=== PATIENT | male | born 1990 | race Caucasian/White ===

== ENCOUNTER 2019-05-26 17:15 | Emergency (ER) | payer SELFPAY ==
[~2019-05-26] VITALS: Ht 182.9 cm; Wt 114.9 kg
[2019-05-26 17:17] VITALS: BP 132/75
[2019-05-26] MEDS ORDERED: DIAZEPAM 5 MG TABLET ONE (17:52)
[2019-05-26] MEDS ORDERED: KETOROLAC 30 MG/1 ML ONE (17:52)
[2019-05-26] MEDS ORDERED: DIAZEPAM 5 MG TABLET PO ONE (18:00)
[2019-05-26] MEDS ORDERED: KETOROLAC 30 MG/1 ML IM ONE (18:00)
--- NOTE | 2019-05-26 18:37 | NUR ---
DC EDUCATION PROVIDED, PT DEMONSTRATES UNDERSTANDING. PT AMBULATED STEADILY TO DC WITH RN. SO TO TRANSPORT PT HOME.
== END 2019-05-26 18:40 | disposition home or self-care (01) ==
LOC: ED 18:34
DX: S29.012A Strain of muscle and tendon of back wall of thorax, initial encounter (principal); X58.XXXA Exposure to other specified factors, initial encounter; Y93.89 Activity, other specified; Y92.89 Other specified places as the place of occurrence of the external cause; Y99.8 Other external cause status
CPT/HCPCS: 72072; 96372; 99283; J1885

== ENCOUNTER 2019-07-14 19:37 | Emergency (ER) | payer SELFPAY ==
[~2019-07-14] VITALS: Ht 182.9 cm; Wt 117.6 kg
[2019-07-14] MEDS ORDERED: KETOROLAC 30 MG/1 ML ONE (20:25)
[2019-07-14] MEDS ORDERED: PROCHLORPERAZINE 5 MG/ML, 2ML ONE (20:25)
[2019-07-14] MEDS ORDERED: DIPHENHYDRAMINE 25 MG CAPSULE ONE (20:25)
[2019-07-14] MEDS ORDERED: KETOROLAC 30 MG/1 ML IVPush ONE (20:30)
[2019-07-14] MEDS ORDERED: KETOROLAC 30 MG/1 ML IM ONE (20:30)
[2019-07-14] MEDS ORDERED: PROCHLORPERAZINE 5 MG/ML, 2ML IM ONE (20:30)
[2019-07-14] MEDS ORDERED: DIPHENHYDRAMINE 25 MG CAPSULE PO ONE (20:30)
[2019-07-14] MEDS ORDERED: PROCHLORPERAZINE 5 MG/ML, 2ML IVPush ONE (20:30)
--- NOTE | 2019-07-14 20:42 | NUR ---
THIS IS A 29 YO MALE WHO PRESENTS TO THE ER C/O A SUDDEN ONSET OF A MIGRAINE WITH SHARP CHEST PAIN AT 1700 TODAY. PT REPORTS CP HAS RESOLVED BUT MIGRAINE IS 7/10. PT REPORTS HE HAS BEEN HAVING THIS SAME MIGRAINE/CP COMBO INTERMITTENTLY OVER THE LAST 2 MONTHS. PT AO X 4. PERRLA. PT ABLE TO MOVE ALL EXTREMITIES W/O DIFFICULTY. NUERO SENSATION INTACT. PNEUMATIC TOOL REPAIRER EQUAL BILATERALLY. SKIN PWD. RESP EVEN AND UNLABORED. CALL LIGHT WITHIN REACH. WILL CONT TO MONITOR PT.
--- NOTE | 2019-07-14 21:25 | NUR ---
PT STATES MOYA IS RESOLVED. PT AND SIGNIFICANT OTHER VERBALIZE UNDERSTANDING OF POC DISCUSSED BY CAREY MALONE. PT STATES "GET MY IV OUT AND GET ME HOME!".
[2019-07-14 21:29] VITALS: BP 131/57
== END 2019-07-14 21:40 | disposition home or self-care (01) ==
LOC: ED 21:00
DX: R07.89 Other chest pain (principal); G43.009 Migraine without aura, not intractable, without status migrainosus; Z87.891 Personal history of nicotine dependence
CPT/HCPCS: 93005; 96374; 96375; 99283; J0780; J1885; Q0163

== ENCOUNTER 2020-01-04 16:03 | Emergency (ER) | payer OTHER ==
[~2020-01-04] VITALS: Ht 182.9 cm; Wt 114.6 kg
[2020-01-04 16:56] LABS: BASOPHILS # (AUTO) 0.04 x10^3/uL (0-0.1); BASOPHILS % (AUTO) 0 % (0-1); EOSINOPHILS # (AUTO) 0.24 x10^3/uL (0-0.4); EOSINOPHILS % (AUTO) 2 % (1-7); LYMPHOCYTES # (AUTO) 2.78 x10^3/uL (1-3.4); LYMPHOCYTES % (AUTO) 25 % (22-44); MD NO; MEAN CORPUSCULAR HEMOGLOBIN 29.3 pg (27.5-34.5); MEAN CORPUSCULAR HGB CONC 33.3 g/dL (33.2-36.2); MEAN PLATELET VOLUME 8.1 fL (7.4-10.4); MONOCYTES # (AUTO) 0.67 x10^3/uL (0.2-0.8); MONOCYTES % (AUTO) 6 % (2-9); NEUTROPHILS % (AUTO) 67 % (42-75); PLATELET COUNT 375 x10^3/uL (130-400); RED BLOOD COUNT 5.43 x10^6/uL (4.38-5.82); RED CELL DISTRIBUTION WIDTH 12.5 % (9.4-14.8)
[2020-01-04 17:07] LABS: ALBUMIN 4.2 g/dL (3.4-5.0); ANION GAP 6 mmol/L (5-15); CALCIUM 9.3 mg/dL (8.5-10.1); CHLORIDE 105 mmol/L (98-107); CREATININE 1.08 mg/dL (0.7-1.3)
--- NOTE | 2020-01-04 17:26 | NUR ---
MANDREL PULLER: PT WALKED BACK FROM LOBBY AT THIS TIME.
[2020-01-04] MEDS ORDERED: ONDANSETRON 2MG/ML, 2ML IVPush ONE (18:00)
[2020-01-04] MEDS ORDERED: KETOROLAC 30 MG/1 ML IVPush ONE (18:00)
[2020-01-04] MEDS ORDERED: DIPHENHYDRAMINE 50 MG/ML, 1ML IVPush ONE (18:00)
--- NOTE | 2020-01-04 18:01 | NUR ---
29 Y/O MALE PRESENTS TO ED WITH C/O MOYA. PER PT "I STARTED GETTING THIS HEADACHE LAST NIGHT. I TOOK SOME EXCEDERINE MIGRAINE LAST NIGHT." NO C/O N/V/D, CP, SOB, TRAUMA, SYNCOPE. PT PLACED ON CONT PULSE OX,NIBP. FIANCE BEDSIDE. Addendum: 01/04/20 at 1827 by JOSE D TASK RN;
[2020-01-04] MEDS ORDERED: KETOROLAC 30 MG/1 ML ONE (18:12)
[2020-01-04] MEDS ORDERED: ONDANSETRON 2MG/ML, 2ML ONE (18:12)
[2020-01-04] MEDS ORDERED: DIPHENHYDRAMINE 50 MG/ML, 1ML ONE (18:14)
--- NOTE | 2020-01-04 18:27 | NUR ---
TASK RN: MEDS ADMINISTERED PER ORDER. NADN. SIGNIFICANT OTHER BEDSIDE.
[2020-01-04 18:55] VITALS: BP 116/72
--- NOTE | 2020-01-04 18:58 | NUR ---
PT VERBALIZES SOME RELIEF AFTER MEDS. RESTING IN GURNEY. LIGHTS OFF FOR COMFORT. SIGNIFICANT OTHER AT BS.
--- NOTE | 2020-01-04 19:18 | NUR ---
D/C INSTRUCTIONS, MEDS & F/U APPT RV'WD WITH PT, HE VERBALIZES UNDERSTANDING. RX GIVEN X3. PT AMBULATED OUT OF ED WITH GIRLFRIEND WITHOUT DIFFICULTY.
== END 2020-01-04 19:19 | disposition home or self-care (01) ==
LOC: ED 17:03
DX: G43.009 Migraine without aura, not intractable, without status migrainosus (principal); M54.2 Cervicalgia; Z87.891 Personal history of nicotine dependence
CPT/HCPCS: 36415; 80048; 82040; 85025; 96374; 96375; 99284; J1200; J1885; J2405

== ENCOUNTER 2020-03-10 10:12 | Emergency (ER) | payer OTHER ==
[~2020-03-10] VITALS: Ht 182.9 cm; Wt 120.1 kg
[2020-03-10 10:32] VITALS: BP 129/81
--- NOTE | 2020-03-10 11:05 | NUR ---
MOLD CHIPPER: PT AMBULATORY TO ROOM FROM LOBBY
[2020-03-10] MEDS ORDERED: KETOROLAC 30 MG/1 ML ONE (11:30)
[2020-03-10] MEDS ORDERED: DIAZEPAM 5 MG TABLET ONE (11:30)
[2020-03-10] MEDS ORDERED: OXYcodone/APAP 5/325MG TABLET ONE (11:32)
[2020-03-10] MEDS ORDERED: KETOROLAC 30 MG/1 ML IM ONE (12:00)
[2020-03-10] MEDS ORDERED: OXYcodone/APAP 5/325MG TABLET PO ONE (12:00)
[2020-03-10] MEDS ORDERED: DIAZEPAM 5 MG TABLET PO ONE (12:00)
== END 2020-03-10 13:01 | disposition home or self-care (01) ==
LOC: ED 12:33
DX: M54.2 Cervicalgia (principal); G24.3 Spasmodic torticollis; Z87.891 Personal history of nicotine dependence
CPT/HCPCS: 72050; 96372; 99283; J1885

== ENCOUNTER 2020-03-16 13:14 | Emergency (ER) | payer OTHER ==
[~2020-03-16] VITALS: Ht 182.9 cm; Wt 122.0 kg
[2020-03-16 13:35] VITALS: BP 129/74
--- NOTE | 2020-03-16 13:46 | NUR ---
GLOVE PRESSER: PT AMBULATORY TO ROOM WITH STEADY GAIT FROM LOBBY WITH CLIENT SUPPORT ADMINISTRATOR
--- NOTE | 2020-03-16 15:47 | NUR ---
Patient given discharge instructions and they have confirmed that they understand the instructions. Patient ambulatory with steady gait.
== END 2020-03-16 15:48 | disposition home or self-care (01) ==
LOC: ED 15:45
DX: R04.0 Epistaxis (principal); G43.909 Migraine, unspecified, not intractable, without status migrainosus
CPT/HCPCS: 99281

== ENCOUNTER 2020-03-19 10:36 | Emergency (ER) | payer SELFPAY ==
[~2020-03-19] VITALS: Ht 190.5 cm; Wt 119.0 kg
[2020-03-19] MEDS ORDERED: DEXAMETHASONE 4 MG TABLET PO ONE (11:30)
--- NOTE | 2020-03-19 11:52 | NUR ---
TASK RN: PT AMBULATORY TO ROOM FROM [facility]
[2020-03-19] MEDS ORDERED: DEXAMETHASONE 4 MG TABLET ONE (11:56)
--- NOTE | 2020-03-19 11:59 | NUR ---
PT MED NOTED. TESTS RESULTED, CHART UP FOR RECHECK
[2020-03-19 13:06] VITALS: BP 110/84
--- NOTE | 2020-03-19 13:07 | NUR ---
Patient/Caregiver given discharge instructions and they have confirmed that they understand the instructions. Patient ambulatory with steady gait.
== END 2020-03-19 13:08 | disposition home or self-care (01) ==
LOC: ED 12:21
DX: J02.9 Acute pharyngitis, unspecified (principal); G43.909 Migraine, unspecified, not intractable, without status migrainosus
CPT/HCPCS: 87081; 87147; 87880; 99283

== ENCOUNTER 2021-01-22 19:05 | Emergency (ER) | payer SELFPAY ==
[~2021-01-22] VITALS: Ht 182.9 cm; Wt 117.8 kg
[2021-01-22 19:09] VITALS: BP 136/84
[2021-01-22 19:32] LABS: MICROSCOPIC NOT IND
[2021-01-22 19:37] LABS: BASOPHILS % (AUTO) 1 % (0-1); EOSINOPHILS % (AUTO) 3 % (1-7); LYMPHOCYTES % (AUTO) 32 % (22-44); MEAN CORPUSCULAR HEMOGLOBIN 30.1 pg (27.5-34.5); MEAN CORPUSCULAR HGB CONC 33.8 g/dL (33.2-36.2); MEAN PLATELET VOLUME 8.5 fL (7.4-10.4); MONOCYTES % (AUTO) 7 % (2-9); NEUTROPHILS % (AUTO) 58 % (42-75); PLATELET COUNT 327 x10^3/uL (130-400); RED BLOOD COUNT 4.93 x10^6/uL (4.38-5.82); RED CELL DISTRIBUTION WIDTH 12.9 % (9.4-14.8)
[2021-01-22 19:48] LABS: ALANINE AMINOTRANSFERASE 68 U/L (12-78); ANION GAP 5 mmol/L (5-15); CALCIUM 9.6 mg/dL (8.5-10.1); CHLORIDE 107 mmol/L (98-107); CREATININE 1.16 mg/dL (0.7-1.3)
[2021-01-22 19:50] LABS: ALKALINE PHOSPHATASE 73 U/L (45-117); BILIRUBIN,TOTAL 0.6 mg/dL (0.2-1.0); TOTAL PROTEIN 8.6 g/dL (6.4-8.2)
--- NOTE | 2021-01-22 23:33 | NUR ---
pt to room at this time.
== END 2021-01-23 00:56 | disposition home or self-care (01) ==
LOC: ED 23:59
DX: K80.50 Calculus of bile duct without cholangitis or cholecystitis without obstruction (principal); R10.11 Right upper quadrant pain; G43.909 Migraine, unspecified, not intractable, without status migrainosus
CPT/HCPCS: 36415; 76700; 80053; 81003; 83690; 85025; 99284

== ENCOUNTER 2021-01-25 18:54 | Emergency (ER) | payer SELFPAY ==
[~2021-01-25] VITALS: Ht 185.4 cm; Wt 118.3 kg
[2021-01-25 20:13] LABS: ALBUMIN 3.8 g/dL (3.4-5.0); ANION GAP 5 mmol/L (5-15); CALCIUM 9.4 mg/dL (8.5-10.1); CHLORIDE 108 mmol/L (98-107)
[2021-01-25 20:15] LABS: BASOPHILS % (AUTO) 1 % (0-1); EOSINOPHILS % (AUTO) 3 % (1-7); LYMPHOCYTES % (AUTO) 31 % (22-44); MEAN CORPUSCULAR HEMOGLOBIN 29.8 pg (27.5-34.5); MEAN CORPUSCULAR HGB CONC 33.3 g/dL (33.2-36.2); MEAN PLATELET VOLUME 8.4 fL (7.4-10.4); MONOCYTES % (AUTO) 8 % (2-9); NEUTROPHILS % (AUTO) 58 % (42-75); PLATELET COUNT 321 x10^3/uL (130-400)
[2021-01-25 20:17] LABS: ALANINE AMINOTRANSFERASE 68 U/L (12-78); ALKALINE PHOSPHATASE 68 U/L (45-117); BILIRUBIN,TOTAL 0.5 mg/dL (0.2-1.0); TOTAL PROTEIN 8.2 g/dL (6.4-8.2)
--- NOTE | 2021-01-25 22:34 | NUR ---
cps team lead: patient to room from lobby.
--- NOTE | 2021-01-25 23:04 | NUR ---
ASSUMED CARE OF PATIENT. PATIENT REPORTS EPIGASTRIC ABD PAIN AND RIGHT CHEST PAIN. PT REPORTS HE WAS SEEN LAST MONDAY AND TOLD HE HAD SLUDGE IN HIS GALLBLADDER. VS STABLE. FAMILY AT BEDSIDE. DR WEBB IN ROOM.
--- NOTE | 2021-01-25 23:08 | NUR ---
DR WEBB IN THE ROOM
[2021-01-25 23:51] VITALS: BP 116/64
== END 2021-01-25 23:54 | disposition home or self-care (01) ==
LOC: ED 23:19
DX: R10.11 Right upper quadrant pain (principal)
CPT/HCPCS: 36415; 76700; 80053; 83690; 85025; 99284